=== PATIENT | male | born 1985 | race African-American/Black ===

== ENCOUNTER 2019-04-02 08:45 | Emergency (ER) | payer OTHER ==
[~2019-04-02] VITALS: Ht 170.2 cm; Wt 80.0 kg
[2019-04-02 10:09] LABS: BASOPHILS % 1.8 % (0.0-2.0); EOSINOPHILS % 2.2 % (0.0-5.0); HEMATOCRIT. 42.9 % (42.0-52.0); HEMOGLOBIN. 14.2 g/dL (14.0-18.0); LYMPHOCYTES % 50.7 % (20.0-50.0); MEAN CORPUSCULAR HEMOGLOBIN 30.6 pg (28.0-32.0); MEAN CORPUSCULAR VOLUME 92.8 fL (80.0-94.0); MEAN PLATELET VOLUME 7.9 fl (7.4-10.4); MONOCYTES % 7.2 % (2.0-8.0); NEUTROPHILS % 38.1 % (40.0-76.0); PLATELET 261 x1000/uL (130-400); RED BLOOD CELL COUNT 4.63 mill/uL (4.7-6.1)
[2019-04-02 10:17] LABS: CHLORIDE 105 mEq/L (98-107)
[2019-04-02 11:11] VITALS: BP 130/59
== END 2019-04-02 11:52 | disposition home or self-care (01) ==
LOC: ER 08:45
DX: M25.561 Pain in right knee (principal); R07.89 Other chest pain
CPT/HCPCS: 36415; 71046; 73560; 80053; 83880; 84484; 85025; 93005; 99284; Z7610

== ENCOUNTER 2020-02-03 08:02 | Emergency (ER) | payer OTHER ==
[~2020-02-03] VITALS: Ht 170.2 cm; Wt 84.0 kg
[2020-02-03 10:07] VITALS: BP 138/70
== END 2020-02-03 10:07 | disposition home or self-care (01) ==
LOC: ER 08:02
DX: N50.89 Other specified disorders of the male genital organs (principal); Z98.890 Other specified postprocedural states
CPT/HCPCS: 76870; 93976; 99284